=== PATIENT | female | born 1945 | race African-American/Black ===

== ENCOUNTER 2016-11-29 09:10 | Emergency (ER) | payer MEDICARE ==
[~2016-11-29] VITALS: Ht 154.9 cm; Wt 78.2 kg
[2016-11-29] MEDS ORDERED: IBUP400T PO (10:25)
[2016-11-29] MEDS ORDERED: ESCI10TA10 PO (10:25)
[2016-11-29] MEDS ORDERED: PRAV20TA2 PO (10:25)
[2016-11-29] MEDS ORDERED: BENZONATATE 100 MG CAPSULE PO SCH (10:30)
[2016-11-29 11:42] VITALS: BP 154/88
== END 2016-11-29 11:45 | disposition home or self-care (01) ==
LOC: ED 11:39
DX: J98.01 Acute bronchospasm (principal); J06.9 Acute upper respiratory infection, unspecified; E78.5 Hyperlipidemia, unspecified; M54.9 Dorsalgia, unspecified; G89.29 Other chronic pain; Z88.0 Allergy status to penicillin
CPT/HCPCS: 71020; 99284